=== PATIENT | male | born 1955 | race Caucasian/White ===

== ENCOUNTER 2017-12-17 07:14 | Inpatient (IN) | payer MEDICARE ==
[~2017-12-17] VITALS: Ht 177.8 cm; Wt 107.0 kg
[2017-12-17] MEDS ORDERED: ACETAMINOPHEN 500 MG TABLET PO ONE (07:45)
[2017-12-17] MEDS ORDERED: SODIUM CHLORIDE 0.9% 1,000 ML IV ONE (07:45)
[2017-12-17] MEDS ORDERED: ONDANSETRON HCL 4 MG/2 ML VIAL IVP ONE (07:45)
[2017-12-17 07:59] LABS: BASOPHILS % (AUTO) 0.8 % (0.0-2.0); EOSINOPHILS % (AUTO) 9.4 % (1.0-6.0); HEMATOCRIT 34.7 % (41-53); HEMOGLOBIN 12.5 g/dL (13.5-17.5); LYMPHOCYTES # (AUTO) 0.9 K/uL (1.0-4.8); LYMPHOCYTES % (AUTO) 12.2 % (22.0-44.0); MEAN CORPUSCULAR HEMOGLOBIN 30.9 pg (26.0-34.0); MEAN CORPUSCULAR VOLUME 86 fL (80-100); MONOCYTES # (AUTO) 0.5 K/uL (0.1-1.0); MONOCYTES % (AUTO) 6.1 % (2.0-9.0); NEUTROPHILS # (AUTO) 5.4 K/uL (1.8-7.7); NEUTROPHILS % (AUTO) 71.5 % (40.0-70.0); PLATELET COUNT (AUTO) 179 K/uL (150-450); RED BLOOD CELL COUNT(AUTO) 4.03 MIL/uL (4.50-5.90); RED CELL DISTRIBUTION WIDTH 13.2 % (11.5-14.5)
[2017-12-17 08:11] LABS: ANION GAP 7 mmol/L (8-16); CALCIUM, TOTAL 8.4 mg/dL (8.8-10.5); CARBON DIOXIDE 27 mmol/L (22-29); CHLORIDE 101 mmol/L (98-107); GLOMERULAR FILTR. RATE CALC > 60 mL/min (>60); GLUCOSE,RANDOM 94 mg/dL (70-110); POTASSIUM 3.7 mmol/L (3.5-5.1); SODIUM SERUM 135 mmol/L (136-145); UREA NITROGEN, BLOOD 11 mg/dL (7-18)
[2017-12-17 08:17] LABS: ALANINE AMINOTRANSFERASE 35 U/L (12-78); ALBUMIN 3.5 g/dL (3.4-5.0); ALKALINE PHOSPHATASE 75 U/L (46-116); ASPARTATE AMINOTRANSFERASE 33 U/L (15-37); BILIRUBIN,TOTAL 1.3 mg/dL (0.1-1.0); LIPASE 135 U/L (73-393)
[2017-12-17] MEDS ORDERED: HALOPERIDOL 5 MG TABLET PO PRN (08:30)
[2017-12-17] MEDS ORDERED: ZOLPIDEM TARTRATE 10 MG TABLET PO PRN (08:30)
[2017-12-17] MEDS ORDERED: KETOROLAC TROMETHAMINE 30 MG/ML VIAL IVP ONE (09:30)
[2017-12-17 09:39] LABS: APPEARANCE,URINE CLEAR (CLEAR); BILIRUBIN,URINE NEGATIVE (NEGATIVE); GLUCOSE, URINE (UA) 250 mg/dL (NEGATIVE); KETONES,URINE 40 mg/dL (NEGATIVE); LEUKOCYTE ESTERASE ,URINE NEGATIVE (NEGATIVE); NITRATE,URINE NEGATIVE (NEGATIVE); OCCULT BLOOD,URINE NEGATIVE (NEGATIVE); PH,URINE 5.5 (5.0-8.0); PROTEIN,URINE NEGATIVE (NEGATIVE); UROBILINOGEN,URINE 0.2 mg/dL (<=1.0)
[2017-12-17 09:48] LABS: AMPHET/METH SCREEN,URINE POSITIVE (NEGATIVE); BARBITURATE SCREEN, URINE NEGATIVE (NEGATIVE); BENZODIAZEPINES SCREEN,URINE NEGATIVE (NEGATIVE); CANNABINOID SCREEN,URINE NEGATIVE (NEGATIVE); COCAINE SCREEN,URINE NEGATIVE (NEGATIVE); METHADONE SCREEN, URINE NEGATIVE (NEGATIVE); OPIATE SCREEN,URINE POSITIVE (NEGATIVE)
[2017-12-17 09:50] LABS: BACTERIA,URINE None Seen /HPF (None Seen); PHENCYCLIDINE SCREEN,URINE NEGATIVE (NEGATIVE); RBC,URINE None Seen /HPF (0-2); WBC,URINE None Seen /HPF (0-5)
[2017-12-17] MEDS ORDERED: ALBUTEROL SULFATE 2.5 MG/0.5 ML NEB SOLUTION NEB PRN ×2 (10:30→13:45)
[2017-12-17] MEDS ORDERED: IPRATROPIUM BROMIDE 0.5 MG/2.5 ML NEB SOLUTION NEB PRN (10:30)
[2017-12-17] MEDS: LORazepam 2 MG TABLET PO PRN ×2 (10:49→16:15)
[2017-12-17 13:07] VITALS: BP 149/94
[2017-12-17] MEDS ORDERED: PNEUMOCOCCAL VACCINE POLYVALENT 0.5 ML VIAL [PPSV23] IM ONE (14:00)
[2017-12-17] MEDS: FLUTICASONE PROPIONATE 50 MCG/SPRAY 16 GM NASAL SPRAY NASAL SCH (16:15)
[2017-12-17 17:00] VITALS: BP 132/93
[2017-12-18 00:10] VITALS: BP 148/93
[2017-12-18] MEDS: LORazepam 1 MG TABLET PO PRN ×5 (00:25→20:15)
[2017-12-18 06:49] LABS: HEMOGLOBIN A1C 5.3 % (4.5-6.2)
[2017-12-18 06:51] LABS: FREE T4 (FREE THYROXINE) 0.99 ng/dL (0.76-1.46); MAGNESIUM 1.7 mg/dL (1.80-2.40); THYROID STIMULATING HORMONE 0.67 uIU/mL (0.36-3.74)
[2017-12-18] MEDS: FLUTICASONE PROPIONATE 50 MCG/SPRAY 16 GM NASAL SPRAY NASAL SCH ×2 (08:06→16:17)
[2017-12-18] MEDS: MONTELUKAST SODIUM 10 MG TABLET PO SCH (08:07)
[2017-12-18] MEDS: LITHIUM CARBONATE 300 MG CAPSULE PO SCH ×2 (08:11→16:09)
[2017-12-18] MEDS ORDERED: LOSARTAN POTASSIUM 25 MG TABLET PO SCH (09:00)
[2017-12-18 19:19] VITALS: BP 137/95
[2017-12-19] MEDS: LORazepam 1 MG TABLET PO PRN ×3 (00:52→16:53)
[2017-12-19 05:04] VITALS: BP 153/108
[2017-12-19] MEDS: MONTELUKAST SODIUM 10 MG TABLET PO SCH (08:19)
[2017-12-19] MEDS: MAGNESIUM OXIDE 400 MG TABLET PO SCH (08:19)
[2017-12-19] MEDS: FLUTICASONE PROPIONATE 50 MCG/SPRAY 16 GM NASAL SPRAY NASAL SCH ×2 (08:20→16:00)
[2017-12-19] MEDS: LOSARTAN POTASSIUM 50 MG TABLET PO SCH (08:20)
[2017-12-19] MEDS: LITHIUM CARBONATE 300 MG CAPSULE PO SCH ×2 (08:23→16:00)
[2017-12-19] MEDS ORDERED: ACETAMINOPHEN 325 MG TABLET PO PRN (10:15)
[2017-12-19] MEDS ORDERED: IBUPROFEN 600 MG TABLET PO PRN (10:15)
[2017-12-19 16:55] VITALS: BP 149/105
[2017-12-20 00:52] VITALS: BP 152/99
[2017-12-20] MEDS: LORazepam 1 MG TABLET PO PRN ×4 (00:56→16:37)
[2017-12-20] MEDS: LITHIUM CARBONATE 300 MG CAPSULE PO SCH ×2 (09:00→16:35)
[2017-12-20] MEDS: MAGNESIUM OXIDE 400 MG TABLET PO SCH (09:09)
[2017-12-20] MEDS: MONTELUKAST SODIUM 10 MG TABLET PO SCH (09:09)
[2017-12-20] MEDS: LOSARTAN POTASSIUM 50 MG TABLET PO SCH (09:09)
[2017-12-20 09:15] VITALS: BP 147/99
[2017-12-20] MEDS: FLUTICASONE PROPIONATE 50 MCG/SPRAY 16 GM NASAL SPRAY NASAL SCH ×2 (09:15→16:30)
[2017-12-20] MEDS: CloNIDine HCL 0.1 MG TABLET PO PRN (09:18)
[2017-12-20 10:18] VITALS: BP 144/95
[2017-12-20 16:30] VITALS: BP 154/95
[2017-12-21 00:01] VITALS: BP 144/99
[2017-12-21] MEDS: LORazepam 1 MG TABLET PO PRN ×5 (00:09→20:25)
[2017-12-21 08:30] VITALS: BP_SYST 148
[2017-12-21] MEDS: FLUTICASONE PROPIONATE 50 MCG/SPRAY 16 GM NASAL SPRAY NASAL SCH ×2 (08:41→16:31)
[2017-12-21] MEDS: LOSARTAN POTASSIUM 50 MG TABLET PO SCH (08:41)
[2017-12-21] MEDS: MAGNESIUM OXIDE 400 MG TABLET PO SCH (08:42)
[2017-12-21] MEDS: MONTELUKAST SODIUM 10 MG TABLET PO SCH (08:42)
[2017-12-21] MEDS: LITHIUM CARBONATE 300 MG CAPSULE PO SCH ×2 (08:50→16:33)
[2017-12-21 16:30] VITALS: BP 154/97
[2017-12-22] MEDS: LORazepam 1 MG TABLET PO PRN ×4 (07:29→20:57)
[2017-12-22 08:30] VITALS: BP 154/96
[2017-12-22] MEDS: LITHIUM CARBONATE 300 MG CAPSULE PO SCH ×2 (09:00→16:25)
[2017-12-22] MEDS: FLUTICASONE PROPIONATE 50 MCG/SPRAY 16 GM NASAL SPRAY NASAL SCH ×2 (09:00→16:25)
[2017-12-22] MEDS: MAGNESIUM OXIDE 400 MG TABLET PO SCH (09:02)
[2017-12-22] MEDS: LOSARTAN POTASSIUM 50 MG TABLET PO SCH (09:03)
[2017-12-22] MEDS: MONTELUKAST SODIUM 10 MG TABLET PO SCH (09:04)
[2017-12-22] MEDS: AmLODIPine BESYLATE 5 MG TABLET PO SCH (10:25)
[2017-12-22 17:01] VITALS: BP 140/80
[2017-12-23] MEDS: LORazepam 1 MG TABLET PO PRN ×5 (05:00→21:27)
[2017-12-23 07:16] VITALS: BP 160/105
[2017-12-23 08:39] VITALS: BP 134/78
[2017-12-23] MEDS: AmLODIPine BESYLATE 5 MG TABLET PO SCH (08:55)
[2017-12-23] MEDS: LOSARTAN POTASSIUM 50 MG TABLET PO SCH (08:55)
[2017-12-23] MEDS: MAGNESIUM OXIDE 400 MG TABLET PO SCH (08:56)
[2017-12-23] MEDS: FLUTICASONE PROPIONATE 50 MCG/SPRAY 16 GM NASAL SPRAY NASAL SCH ×2 (08:56→16:22)
[2017-12-23] MEDS: MONTELUKAST SODIUM 10 MG TABLET PO SCH (08:56)
[2017-12-23] MEDS: LITHIUM CARBONATE 300 MG CAPSULE PO SCH ×2 (08:56→17:00)
[2017-12-23 16:02] VITALS: BP 155/95
[2017-12-24] MEDS: LORazepam 1 MG TABLET PO PRN ×5 (04:38→20:48)
[2017-12-24 07:06] LABS: ALANINE AMINOTRANSFERASE 37 U/L (12-78); ALBUMIN 3.4 g/dL (3.4-5.0); ALKALINE PHOSPHATASE 54 U/L (46-116); ANION GAP 4 mmol/L (8-16); ASPARTATE AMINOTRANSFERASE 18 U/L (15-37); BILIRUBIN,TOTAL 0.3 mg/dL (0.1-1.0); CALCIUM, TOTAL 8.6 mg/dL (8.8-10.5); CARBON DIOXIDE 29 mmol/L (22-29); CHLORIDE 104 mmol/L (98-107); CREATINE KINASE, TOTAL ONLY 20 U/L (39-308); CREATININE 0.86 mg/dL (0.60-1.30); GLOMERULAR FILTR. RATE CALC > 60 mL/min (>60); GLUCOSE,RANDOM 103 mg/dL (70-110); POTASSIUM 4.1 mmol/L (3.5-5.1); SODIUM SERUM 137 mmol/L (136-145); TOTAL PROTEIN, SERUM 7.1 g/dL (6.4-8.2); UREA NITROGEN, BLOOD 15 mg/dL (7-18)
[2017-12-24 08:15] VITALS: BP 161/96
[2017-12-24] MEDS: LITHIUM CARBONATE 300 MG CAPSULE PO SCH ×2 (08:37→17:00)
[2017-12-24] MEDS: MAGNESIUM OXIDE 400 MG TABLET PO SCH (08:37)
[2017-12-24] MEDS: MONTELUKAST SODIUM 10 MG TABLET PO SCH (08:37)
[2017-12-24] MEDS: LOSARTAN POTASSIUM 50 MG TABLET PO SCH (08:37)
[2017-12-24] MEDS: AmLODIPine BESYLATE 5 MG TABLET PO SCH (08:37)
[2017-12-24] MEDS: FLUTICASONE PROPIONATE 50 MCG/SPRAY 16 GM NASAL SPRAY NASAL SCH ×2 (08:38→16:40)
[2017-12-24] MEDS ORDERED: BISACODYL 5 MG EC TABLET PO PRN (10:15)
[2017-12-24 17:13] VITALS: BP 160/99
[2017-12-24] MEDS ORDERED: LamoTRIgine 25 MG TABLET PO SCH (21:00)
[2017-12-25 00:45] VITALS: BP 160/99
[2017-12-25] MEDS: LORazepam 1 MG TABLET PO PRN ×2 (00:53→06:21)
[2017-12-25] MEDS: CloNIDine HCL 0.1 MG TABLET PO PRN (00:56)
[2017-12-25] MEDS ORDERED: LOSARTAN POTASSIUM 50 MG TABLET PO SCH (09:00)
[2017-12-25] MEDS ORDERED: AmLODIPine BESYLATE 10 MG TABLET PO SCH (09:00)
[2017-12-25] MEDS ORDERED: LAMO25 PO (10:34)
[2017-12-25] MEDS ORDERED: LOSA50TA25 PO (10:35)
[2017-12-25] MEDS ORDERED: AMLO-512 PO (10:35)
[2017-12-25] MEDS ORDERED: FLUT16H NASAL (10:35)
[2017-12-25] MEDS ORDERED: MAGOX PO (10:36)
[2017-12-25] MEDS ORDERED: MONT10TA21 PO (10:37)
[2017-12-25] MEDS: FLUTICASONE PROPIONATE 50 MCG/SPRAY 16 GM NASAL SPRAY NASAL SCH (11:33)
[2017-12-25] MEDS: MAGNESIUM OXIDE 400 MG TABLET PO SCH (11:34)
[2017-12-25] MEDS: MONTELUKAST SODIUM 10 MG TABLET PO SCH (11:34)
== END 2017-12-25 11:45 | disposition home or self-care (01) | DRG 885 ==
LOC: EMS 07:15 → 3EX 09:32
PROVIDERS: ADMIT Psychiatry & Neurology Psychiatry; ATTEND Psychiatry & Neurology Psychiatry
DX: F33.2 Major depressive disorder, recurrent severe without psychotic features (principal); I11.0 Hypertensive heart disease with heart failure; R45.851 Suicidal ideations; E87.1 Hypo-osmolality and hyponatremia; F17.210 Nicotine dependence, cigarettes, uncomplicated; D64.9 Anemia, unspecified; J32.9 Chronic sinusitis, unspecified; M19.90 Unspecified osteoarthritis, unspecified site; M17.10 Unilateral primary osteoarthritis, unspecified knee; M19.079 Primary osteoarthritis, unspecified ankle and foot; M19.91 Primary osteoarthritis, unspecified site; I50.9 Heart failure, unspecified; F15.90 Other stimulant use, unspecified, uncomplicated; E83.42 Hypomagnesemia; J30.9 Allergic rhinitis, unspecified; F41.9 Anxiety disorder, unspecified; F22 Delusional disorders; K59.00 Constipation, unspecified; J44.9 Chronic obstructive pulmonary disease, unspecified; Z98.1 Arthrodesis status; Z91.19 Patient's noncompliance with other medical treatment and regimen; Z59.0 Homelessness; M47.9 Spondylosis, unspecified; Z80.7 Family history of other malignant neoplasms of lymphoid, hematopoietic and related tissues; Z82.0 Family history of epilepsy and other diseases of the nervous system; Z82.49 Family history of ischemic heart disease and other diseases of the circulatory system
CPT/HCPCS: 80074; 83036; 83735; 84439; 84443; 86592; 99285; G0480; J1885; J2405; J7030